=== PATIENT | male | born 1985 | race Caucasian/White ===

== ENCOUNTER 2024-06-08 12:36 | Emergency (ER) | payer BC, MEDICAID ==
[~2024-06-08] VITALS: Ht 185.4 cm; Wt 103.2 kg
[2024-06-08 15:35] VITALS: BP 134/84; TEMP 98; O2SAT 98
== END 2024-06-08 15:36 | disposition home or self-care (01) ==
LOC: M ED 12:36
DX: S62.626A Displaced fracture of middle phalanx of right little finger, initial encounter for closed fracture (principal); S80.01XA Contusion of right knee, initial encounter; W10.8XXA Fall (on) (from) other stairs and steps, initial encounter; Y92.009 Unspecified place in unspecified non-institutional (private) residence as the place of occurrence of the external cause; Y93.89 Activity, other specified; Y99.9 Unspecified external cause status

== ENCOUNTER → 2024-06-12 | Outpatient (CLI) | payer MEDICAID | LOC: M SOG 09:05 | PROVIDERS: ATTEND Orthopaedic Surgery Hand Surgery | DX: S62.626 Displaced fracture of middle phalanx of right little finger (principal) ==

== ENCOUNTER → 2024-07-03 | Outpatient (CLI) | payer MEDICAID | LOC: M SOG 07:52 | PROVIDERS: ATTEND Physician Assistant | DX: S62.626D Displaced fracture of middle phalanx of right little finger, subsequent encounter for fracture with routine healing (principal) ==